=== PATIENT | male | born 1970 | race Caucasian/White ===

== ENCOUNTER 2022-04-02 17:54 | Observation (INO) | payer MEDICAID, SELFPAY ==
[2022-04-02] VITALS (14 sets, daily range): BP systolic 68–117; BP diastolic 55–80; PULSE 60–196; RESP 12–40; TEMP 36.4–36.8; O2SAT 97–100; BMI 34.2
--- NOTE | ~2022-04-02 | XR_ITS ---
EXAMINATION: XR chest 1V portable Exam Date/Time: 04/02/2022 18:43 CDT HISTORY: palpitations, SOB X TODAY Comparison: 01/18/2019. RESULT: Lines, tubes, and devices: None. Lungs and pleura: Clear. Cardiomediastinal silhouette: Stable cardiomediastinal silhouette. Other: No acute osseous or upper abdominal finding. IMPRESSION: No acute cardiopulmonary process. Reviewed, dictated and finalized at location K.
--- NOTE | 2022-04-02 17:59 | ECG_ITS ---
Measurements Intervals [place] Rate: 158 P: MD: 0 QRS: 50 QRSD: 83 T: 44 QT: 274 QTc: 445 Interpretive Statements ATRIAL FIBRILLATION WITH RAPID VENTRICULAR RESPONSE BASELINE ARTIFACT- II, III, AVR, AVL, AVF, V1-V3 ABNORMAL ECG Electronically Signed On 04-03-2022 15:46:56 CDT by Maynor Ortiz D.O.
[2022-04-02] MEDS: AMIODARONE 150 MG/D5W 100 ML 150 MG/100 ML BAG 600 MG IV CONT (18:20)
[2022-04-02 18:21] LABS: Basophils Absolute Auto 0.1 K/mm3 (0.0-0.1); Basophils Percent Auto 0.5 % (0.2-1.2); Eosinophils Absolute Auto 0.1 K/mm3 (0-0.3); Eosinophils Percent Auto 0.7 % (0-4.4); Hematocrit 46.6 % (42.0-52.0); Hemoglobin 16.2 g/dL (14.0-18.0); Immature Granulocyte Absolute 0.03 K/mm3 (0.00-0.031); Immature Granulocyte Percent A 0.3 % (0-0.5); Lymphocytes Absolute Auto 2.46 K/mm3 (0.9-3.2); Lymphocytes Percent Auto 23.5 % (18.3-44.2); Mean Corpuscular HGB Conc 34.8 g/dl (32-36); Mean Corpuscular Hemoglobin 30.6 pg (26-34); Mean Corpuscular Volume 87.9 fl (80-100); Mean Platelet Volume 10.1 fl (7.4-10.4); Monocytes Absolute Auto 1.1 K/mm3 (0.1-0.6); Monocytes Percent Auto 10.9 % (2.6-8.5); Neutrophils Absolute Auto 6.7 K/mm3 (1.3-6.7); Neutrophils Percent Auto 64.1 % (45.5-73.1); Platelet Count Result 271 k/mm3 (150-375); Red Cell Distribution Width 12.2 % (11.5-14.5); White Blood Count 10.5 K/mm3 (4.5-10.0)
[2022-04-02 18:33] LABS: Prothrombin Time 12.7 Seconds (11.1-14.7)
[2022-04-02 18:34] LABS: Partial Thromboplastin Time 28.7 SECONDS (22.3-36.8)
[2022-04-02] MEDS: AMIODARONE 360 MG/D5W 200 ML 360 MG/200 ML BAG 33.33 MG IV CONT (18:34)
[2022-04-02 18:35] LABS: Anion Gap 12 mmol/L (8-16); Blood Urea Nitrogen 12 mg/dL (9-20); Calcium 9.2 mg/dL (8.4-10.2); Carbon Dioxide 19 mmol/L (22-30); Chloride 105 mmol/L (98-107); Estimated Glomerular Filt Rate > 60; Glucose 120 mg/dL (65-110); Potassium 3.8 mmol/L (3.4-5.0); Sodium 136 mmol/L (137-145)
[2022-04-02] MEDS: SODIUM CHLORIDE 0.9% IV 1,000 ML 999 ML (18:35)
[2022-04-02 18:47] LABS: NT Pro B Type Natriuretic Pept 411 pg/mL (5-100); Troponin I 0.012 ng/mL (0.000-0.034)
--- NOTE | 2022-04-02 19:14 | PC.NURSE ---
Assuming care of pt.
--- NOTE | 2022-04-02 19:36 | ED.ARRPALP ---
HPI - Arrhythmia/Palpitations General Chief Complaint: Arrhythmia/Palpitations Stated Complaint: poss heat exhaustion Time Seen by Provider: 04/02/22 17:59 History of Present Illness HPI narrative: Patient is a 51-year-old male who presents ER with weakness. Patient reports he has had some palpitations beginning yesterday. He has history of atrial fibrillation. Reports he has been taking his metoprolol. He came into town to go on a walk. He has about 2-1/2 miles then and he was feeling extreme fatigue lightheadedness. EMS arrived and patient has been hypotensive and tachycardic. They started fluids. They also poured water on him due to concern that he may have heat exhaustion. Denies chest pain or chest pressure. He is feeling quite anxious. No fevers or chills. Related Data Allergies Allergy/AdvReac Type Severity Reaction Status Date / Time No Known Allergies Allergy Unverified 01/18/19 21:30 Review of Systems Review of Systems: All systems reviewed & are unremarkable except as noted in HPI and below Constitutional: Constitutional: Denies chills, Reports fatigue and Denies fever(s) ENT: Denies nasal congestion and Denies sore throat Cardiovascular: Cardiovascular: Denies chest pain, Reports rapid heart rate and Denies radiating jaw, neck or arm pain Respiratory: Respiratory: Denies cough, Reports dyspnea and Denies wheezing Gastrointestinal: Gastrointestinal: Denies abdominal pain, Denies nausea and Denies vomiting Neurologic: Denies syncope, Denies headache(s), Denies numbness and Denies weakness PMFSH Past Medical History Medical History (Updated 04/02/22 @ 21:40 by Peter Ashley MD) Paroxysmal atrial fibrillation Surgical History Surgical History (Updated 04/02/22 @ 19:42 by Peter Ashley MD) H/O inguinal hernia repair History of appendectomy Family History Family History (Updated 04/02/22 @ 21:05 by Tammy Denney DO) Mother Hypertension Diabetes mellitus Cerebrovascular accident Acute myocardial infarction Premature coronary disease Sibling Acute myocardial infarction In her 50s Atrial fibrillation Sibling Alcohol abuse Atrial fibrillation Social History Social History (Updated 04/02/22 @ 21:14 by Tammy Denney DO) Social History: 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 He is a lifelong nonsmoker. He denies alcohol or illicit substance use. Smoking status: Never smoker Exam Narrative: GENERAL: Ill-appearing, well-nourished, and in mild distress. HEAD: Normocephalic, atraumatic. EYES: PERRL and EOMI. ENT: Mucous membranes moist. CHEST: Clear to auscultation. No respiratory distress. HEART: Tachycardic with an irregularly irregular rate and rhythm. Normal peripheral pulses. ABDOMEN: Soft, nontender, nondistended. EXTREMITIES: Normal range of motion. No edema. SKIN: Warm, diaphoretic, no rash. NEURO: No focal deficits. Alert and oriented x3. PSYCH: Anxious mood and affect. Normal thought content. Course Course Emergency Course: Patient blood pressure and heart rate improving with amiodarone drip. He is received 2 L IV fluid. Admit to hospitalist service. Cardiology consulted. No chest pain. Vital Signs Vital signs: Vital Signs Temperature 97.6 F 04/02/22 17:53 Pulse Rate 196 H 04/02/22 17:53 Respiratory Rate 20 04/02/22 17:53 Blood Pressure 87/64 L 04/02/22 17:53 Pulse Oximetry 99 04/02/22 17:53 Oxygen Delivery Room Air 04/02/22 17:53 Temperature 97.9 F 04/02/22 20:38 Pulse Rate 119 H 04/02/22 21:26 Respiratory Rate 20 04/02/22 21:26 Blood Pressure 102/72 04/02/22 21:26 Pulse Oximetry 97 04/02/22 21:26 Oxygen Delivery Room Air 04/02/22 17:53 MDM - Arrhythmia/Palpitations Lab Data Result diagrams: 04/02/22 18:15 04/02/22 18:15 Labs: Lab Results 04/02/22 04/02/22 04/02/22 Range/Units 18:15 18:15 18:15
[2022-04-02 20:16] LABS: SARS-CoV-2 RNA PCR Negative
--- NOTE | 2022-04-02 20:27 | PM.IMHP ---
H&P: HPI History of Present Illness Date/Time: 04/02/22 20:27 Chief Complaint: Elevated heart rate Narrative: 51-year-old male with past medical history of obesity, anxiety and paroxysmal atrial fibrillation who presented to the ER via EMS due to elevated heart rate. The patient was in the area walking along a trail while wearing long pants and shirt in over 100 degree temperatures. He reported that before starting his walk ET was having some palpitations but he states that is not unusual for him to have palpitations. He had not consumed any food or water for the day. Just prior to starting on his walk he decided to take his metoprolol. He thought his metoprolol would bring his heart rate down as he walked. Instead as he was on the way back from his walk he became short of breath and lightheaded. When he called EMS the patient was found to be hypotensive with blood pressures of 85 systolic and on arrival to the ER his blood pressures were is low as 68/55. He had received 1 L fluids by EMS him 1 more L in the ER. I requested 3 L be given to the patient has blood pressures are still only 98/77 when I was called for the patient's admission. Is when I went to evaluate the patient in the ER the patient had only produced a scant amount of urine in with sample was still too small to send down to the lab for evaluation. He reports that he was sweating quite heavily and had saturated is close before he came to the ER. He thought that the sweating will and wet clothes would help cool is body so he was not too concerned. He denies any chest pain. He has not had any cough, congestion or significant lower extremity swelling. He reports that he always wears compression hose because his left ankle swells frequently. He states that this happens most of the time when he falls asleep sitting at his kitchen table. He reports that he he does have palpitations frequently but relates this to anxiety. [facility] and was started on [employer]. 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 He did have some nausea just prior to calling EMS but is nausea since resolved. He has not had any vomiting or other GI symptoms. His temperature was normal when he arrived to the ER. He has been drinking an excessive amount of diet soda oftentimes caffeinated soda. He drinks about 2 Liters a day. Review of Systems Review of Systems: 12 systems were reviewed with pertinent positives and negatives per HPI. Except as documented in the HPI, all other systems were reviewed and are negative. [facility] Past Medical History Medical History (Updated 04/02/22 @ 23:20 by Tammy Denney DO) Anxiety Diastolic dysfunction Echocardiogram December 2018: EF 60% diastolic dysfunction, mild LVH Obesity Paroxysmal atrial fibrillation Surgical History Surgical History (Updated 04/02/22 @ 23:07 by Tammy Denney DO) History of appendectomy (~2015) History of bilateral inguinal hernia repair (~2000) S/P LASIK surgery (~2000) Family History Family History Mother Hypertension Diabetes mellitus Cerebrovascular accident Acute myocardial infarction Premature coronary disease Sibling Acute myocardial infarction In her 50s Atrial fibrillation Sibling Alcohol abuse Atrial fibrillation Social History Social History (Updated 04/02/22 @ 23:10 by Tammy Denney DO) Social History: Code status: Full code Surrogate decision maker: Ronaldo Wei (brother) Smoking status: Never smoker Alcohol intake: never Substance use: never Additional living arrangements comments: He moved to [facility] March 2021 to be closer to his brother. He is single and does not have any children. [place]
[2022-04-02 21:16] LABS: Magnesium 1.9 mg/dL (1.6-2.3)
[2022-04-02] MEDS: SODIUM CHLORIDE 0.9% IV 1,000 ML 999 ML IV CONT ×2 (21:17→23:20)
[2022-04-02 21:36] LABS: Troponin I 0.048 ng/mL (0.000-0.034)
--- NOTE | 2022-04-02 22:31 | ADMGEN ---
This patient, Guido Wei, was admitted to IMU Room 213-01 AT 2232. Patient/family oriented to hospital policies and general routines including ID bracelet, bed and alarms, visiting hours, pain management, procedures, bathroom and other care routines, personal items, smoking policy, room service/diet, and visiting hours. Information on how to activate the Rapid Response Team has been discussed. Patient/Family are encouraged to report perceived risks to care and to ask questions if they do not understand what they are told or what they should do.
[2022-04-03] VITALS (8 sets, daily range): BP systolic 95–97; BP diastolic 64–65; PULSE 61–114; RESP 12–16; TEMP 36.2–36.8; O2SAT 98
[2022-04-03] MEDS: AMIODARONE 360 MG/D5W 200 ML 360 MG/200 ML BAG 16.67 MG IV CONT (00:11)
[2022-04-03] MEDS: SODIUM CHLORIDE 0.9% IV 1,000 ML 150 ML IV CONT (00:11)
[2022-04-03] MEDS: ENOXAPARIN 120 MG/0.8 ML SYRINGE 110 MG SUB-Q (00:56)
[2022-04-03 01:27] LABS: Troponin I 0.075 ng/mL (0.000-0.034)
--- NOTE | 2022-04-03 08:53 | ECG_ITS ---
Measurements Intervals [place] Rate: 59 P: 42 ID: [id number] QRS: -14 QRSD: 99 T: -8 QT: 413 QTc: 412 Interpretive Statements SINUS BRADYCARDIA BORDERLINE T WAVE ABNORMALITY- INFERIOR LEADS BORDERLINE ECG Electronically Signed On 04-03-2022 9:27:29 CDT by Maynor Ortiz D.O.
--- NOTE | 2022-04-03 09:19 | PM.CNCAR ---
Assessment and Plan Assessment and plan (1) Paroxysmal atrial fibrillation with RVR: Code(s): I48.0 - Paroxysmal atrial fibrillation Status: Acute Plan This is a 51-year-old man known to have lone atrial fibrillation. He follows with a fluid dynamicist at [facility]. He had an episode of symptomatic recurrence of his arrhythmia yesterday in the setting of exertion, dehydration volume depletion when it was over 100? outside. He was given some IV fluid in amiodarone is back in sinus rhythm today and looks fine this morning. I believe his amiodarone infusion should be stopped and we can allow this gentleman to be discharged for ongoing follow-up with his established fluid dynamicist. His next appointment he thinks is not until the of this year I told him to contact his physician and let him know that he was hospitalized overnight because of a symptomatic recurrence of his arrhythmia. At this time I do not think we need to advance his antiarrhythmic therapy be on the metoprolol that he is already taking. If you have any other cardiac questions for me let me know otherwise I will not plan on arranging follow-up for this gentleman in our office since he does see a fluid dynamicist elsewhere. Eugenio Moffett MD [facility] History of Present Illness History of Present Illness Consult date/time: 04/03/22 09:19 Consult reason: atrial fibrillation Reason For Visit: atrial fibrillation with RVR Narrative: This is a 51-year-old patient with a history of lone atrial fibrillation admitted to the hospital yesterday after being seen in the emergency room with a recurrence of this arrhythmia. I have not seen this patient prior to this encounter. He states that he has a history of atrial fibrillation for about 3 years. He was found to have atrial fib in 2019 when he developed palpitations while he was on a walk for exercise. He had the symptoms off and on for most of the day that he ended up going to the hospital where he was evaluated and treated. Over the several years he was initially seen by a couple of different fluid dynamicist he currently follows with a fluid dynamicist at [facility] in [place]. He states that his physicians have not found any structural cardiac problems he has no history of ischemic heart disease he has had negative stress test a negative coronary calcium scoring done to rule out ischemic disease. He is a nonsmoker he does drink a lot of caffeinated beverages. He has not had a recurrence of his arrhythmia that has been problematic for something like a couple of years. He has been maintained on a modest dose of metoprolol. Yesterday he decided to go for a walk again around a [place] in [facility] where he likes to walk for exercise. He noted the onset of tachy palpitations at that time. Obviously he did not become too alarmed because he drove over to [place] to meet with a friend and because of ongoing palpitations eventually presented to this hospital's emergency room. He was found to be in AFib with RVR. He was also sweating and was rather diaphoretic when he was walking yesterday was over 101?. He was appeared to be dehydrated and hypotensive in the emergency room. He was given intravenous fluid for volume resuscitation as well as being started on an amiodarone infusion. At about 10:00 a.m. last night or so it looks like on telemetry he converted to sinus rhythm. He is continuing on the maintenance dose of amiodarone. He is asymptomatic now and feels well. Review of Systems Constitutional: Constitutional: Reports no additional constitutional complaints Eyes: Eyes: Reports no additional eye complaints ENT: Reports system reviewed and no additional complaints, except as documented Cardiovascular: Cardiovascular: Reports as per HPI Respiratory: Respiratory: Reports no additional respiratory complaints Gastrointestinal: Gastrointestinal: Reports no additional gastrointestinal complaints Musculoskeletal: Muscu
[2022-04-03 09:59] LABS: Appearance Urine Clear (Clear); Bilirubin Urine Negative (Negative); Blood Urine Negative (Negative); Color Urine Yellow (Yellow); Glucose Urine UA Negative (Negative); Ketones Urine Trace mg/dL (Negative); Leukocyte Esterase Ur Negative LEU/UL (Negative); Nitrate Urine Negative (Negative); Protein Urine Trace mg/dL (Negative); Specific Grav Ur 1.015 (1.001-1.035); Urobilinogen Urine 0.2 mg/dL (<2.0)
[2022-04-03 10:02] LABS: Mucus Urine Rare /lpf; WBC Urine 0-3 /hpf
[2022-04-03 10:03] LABS: Add Urine Microscopic? YES
[2022-04-03 10:13] LABS: Amphetamine Screen Urine Negative (Negative); Barbiturate Screen Urine Negative (Negative); Benzodiazepines Screen Urine Negative (Negative); Cannabinoid Screen Urine Negative (Negative); Cocaine Screen Urine Negative (Negative); Methadone Screen Urine Negative (Negative); Opiate Screen Urine Negative (Negative); Phencyclidine Screen Urine Negative (Negative)
[2022-04-03] MEDS: busPIRone HCL 10 MG TABLET PO (10:34)
[2022-04-03] MEDS: ASPIRIN 81 MG ENTERIC TABLET PO (10:34)
[2022-04-03] MEDS: METOPROLOL SUCCINATE EXT REL 25 MG TABCR PO (10:35)
[2022-04-03] MEDS: ENOXAPARIN 40 MG/0.4 ML SYRINGE SUB-Q (10:36)
--- NOTE | 2022-04-03 11:57 | PM.DS ---
DS: Admitting Diagnosis Discharge Date 04/03/2022 Admitting Diagnosis atrial fibrillation with RVR DS: Discharge Diagnosis Discharge Diagnosis (1) Paroxysmal atrial fibrillation with RVR: Code(s): I48.0 - Paroxysmal atrial fibrillation Status: Acute Assessment and Plan: - The patient's chads Vasc score is 1. Does not qualify for long-term anticoagulation. Will continue patient's home metoprolol and aspirin. The patient's heart rate was elevated in the ER but has improved with IV fluid hydration and amiodarone infusion. I suspect the greatest portion of the patient's RVR was due to volume depletion. Given the patient's blood pressures have normalized I will resume patient's metoprolol and morning. Will continue baby aspirin daily. - Cardiology was consulted from the ER. (2) Hypotension: Code(s): I95.9 - Hypotension, unspecified Status: Acute Assessment and Plan: -most likely due to combination of the patient's beta-saqib in the setting of dehydration as evidence by the patient's absent urine output. The patient received 1 L of normal saline from EMS and 1 L in the ER. I requested an additional L be given in the ER and as patient is still had only minimal urine output will give an additional L when the patient arrived to the IMU. Will place patient on ongoing fluids at 150 mL an hour after that point. Patient's hypotension has resolved. (3) Dehydration: Code(s): E86.0 - Dehydration Status: Acute Assessment and Plan: -will give a total of 4 L in fluid bolus as discussed above. Will continue fluids at her 50 mL an hour overnight. Will monitor urine output closely. (4) Excessive daytime sleepiness: Code(s): G47.19 - Other hypersomnia Status: Acute Assessment and Plan: -given the patient's report of falling asleep in inappropriate places and his large neck circumference and crowded posterior oropharynx he would benefit from outpatient polysomnogram on discharge. (5) Elevated troponin: Code(s): R77.8 - Other specified abnormalities of plasma proteins Status: Acute Assessment and Plan: The patient has elevated troponin similar to when he had his prior episode of AFib RVR. He is not having any chest pain or symptoms to suggest acute cardiac ischemia. Will continue to trend serial troponins. Patient is in the IMU. Patient will receive 1 dose of therapeutic Lovenox. Will continue metoprolol and baby aspirin. DS: Summary Hospital Course Reason for hospitalization: Chief Complaint: Elevated heart rate Narrative: 51-year-old male with past medical history of obesity, anxiety and paroxysmal atrial fibrillation who presented to the ER via EMS due to elevated heart rate.? The patient was in the area walking along a trail while wearing long pants and shirt in over 100 degree temperatures.? He reported that before starting his walk ET was having some palpitations but he states that is not unusual for him to have palpitations.? He had not consumed any food or water for the day.? Just prior to starting on his walk he decided to take his metoprolol.? He thought his metoprolol would bring his heart rate down as he walked.? Instead as he was on the way back from his walk he became short of breath and lightheaded.? When he called EMS the patient was found to be hypotensive with blood pressures of 85 systolic and on arrival to the ER his blood pressures were is low as 68/55.? He had received 1 L fluids by EMS him 1 more L in the ER.? I requested 3 L be given to the patient has blood pressures are still only 98/77 when I was called for the patient's admission.? Is when I went to evaluate the patient in the ER the patient had only produced a scant amount of urine in with sample was still too small to send down to the lab for evaluation.? He reports that he was sweating quite heavily and had saturated is close before he came to the ER.? He thought that the
== END 2022-04-03 12:07 | disposition home or self-care (01) ==
LOC: ANHED 21:40 → ANHIMU 04-03 00:10
PROVIDERS: Admitting Provider Internal Medicine; Emergency Provider Emergency Medicine; Visit Provider Family Medicine
DX: I48.0 Paroxysmal atrial fibrillation (principal); R53.1 Weakness; I95.9 Hypotension, unspecified; G47.19 Other hypersomnia; R77.8 Other specified abnormalities of plasma proteins; E86.0 Dehydration; R06.00 Dyspnea, unspecified; F41.9 Anxiety disorder, unspecified; I51.9 Heart disease, unspecified; E66.9 Obesity, unspecified; Z68.34 Body mass index [BMI] 34.0-34.9, adult; Z79.82 Long term (current) use of aspirin; Z20.822 Contact with and (suspected) exposure to COVID-19; Z79.899 Other long term (current) drug therapy
CPT/HCPCS: 36415; 71045; 80048; 80307; 81001; 83735; 83880; 84484; 85025; 85610; 85730; 93005; 96361; 96365; 96366; 96372; 96374; 99285; A9270; C9803; G0378; J0282; J1650; J7030; U0003; U0005